=== PATIENT | male | born 1960 | race Caucasian/White ===

== ENCOUNTER → 2017-06-18 | Outpatient (CLI) | payer OTHER ==
[~2017-06-18] MED LIST: ASPI81TA28 PO; FLV1 PO; INDO50CA97 PO; LPD600 PO; OMEG10007 PO; OMEP20TA PO
[2017-06-18 09:51] LABS: ALT/SGPT 46 U/L (12-78); AST/SGOT 26 U/L (15-37); BLOOD UREA NITROGEN 14 mg/dl (7-18); CALCIUM 8.7 mg/dl (8.5-10.1); CARBON DIOXIDE 23 mmol/L (21-32); CHOLESTEROL 109 mg/dl (0-200); GLUCOSE 100 mg/dl (70-99); SODIUM 139 mmol/L (136-145); URIC ACID 7.6 mg/dl (2.6-7.2)
[2017-06-18 09:54] LABS: ALKALINE PHOSPHATASE 110 U/L (45-117); LDL CHOLESTEROL CALCULATED 31 mg/dl; TOTAL PROTEIN 7.3 gm/dl (6.4-8.2)
== END | disposition home or self-care (01) ==
LOC: C.LAB 08:31
PROVIDERS: ATTEND Family Medicine
DX: I10 Essential (primary) hypertension (principal); E78.5 Hyperlipidemia, unspecified; M10.9 Gout, unspecified; E22.9 Hyperfunction of pituitary gland, unspecified; E72.11 Homocystinuria